=== PATIENT | male | born 1990 | race Caucasian/White ===

== ENCOUNTER 2016-12-24 23:52 | Emergency (ER) | payer OTHER ==
[~2016-12-24] VITALS: Ht 172.7 cm; Wt 72.6 kg
--- NOTE | ~2016-12-24 | EKG ---
[address] [place] [address] ELECTROCARDIOGRAM REPORT Name: JAY GARCIA Room #: DEP ANIYAH [place]#: [id number] Admission: 12/24/16 Attend Phys: Discharge: 12/25/16 Date of : [birth year] Report #: [id number] THIS REPORT FOR: //name// [facility] ED Test Date: 2016-12-25 Test Time: 00:00:48 Pat Name: JAY GARCIA Department: Room: Gender: M Spindle Maker: [id number] : 1990 Requested By: Kenrick Chiu Order Number: [id number] MD: Jersey Fisher Measurements Intervals Sargents Rate: 57 P: 25 GA: 158 QRS: 34 QRSD: 97 T: 49 QT: 402 QTc: 392 Interpretive Statements Sinus rhythm No previous ECG available for comparison Electronically Signed On 12-25-2016 15:46:42 CDT by Jersey Fisher [email or web address] <ELECTRONICALLY SIGNED> By: Jersey Fisher MD 12/25/16 1546 0000 0000 Jersey Fisher MD /EPI
[2016-12-25 00:43] LABS: ABSOLUTE NEUTROPHILS 7.4 thou/uL (1.4-8.2); BASOPHILS 0.3 % (0.0-2.0); EOSINOPHILS 1.7 % (0.0-3.0); HEMATOCRIT 42.6 % (42.0-52.0); HEMOGLOBIN 15.2 gm/dL (14.0-18.0); MCH 29.9 pg (26.0-34.0); MCHC 35.7 g/dL (28.0-37.0); MCV 83.7 fL (80.0-100.0); MONOCYTES 6.3 % (1.0-8.0); PLATELET COUNT 188 thou/uL (150-400); POLYS 71.7 % (36.0-66.0); RBC 5.09 mil/uL (4.50-6.00); RDW 12.6 % (10.5-14.5); WBC 10.3 thou/uL (4.0-11.0)
[2016-12-25 00:44] LABS: MANUAL DIFF NO
[2016-12-25 00:46] LABS: CALCIUM 9.3 mg/dL (8.5-10.1)
[2016-12-25 00:53] LABS: TOTAL BILIRUBIN 0.4 mg/dL (<0.1-1.0); TOTAL PROTEIN 8.2 g/dL (6.4-8.2)
[2016-12-25] MEDS ORDERED: OMEPRAZOLE20 M1 PO (01:23)
[2016-12-25] MEDS ORDERED: ZOFRAN ODT4 MG PO (01:23)
[2016-12-25] MEDS ORDERED: CARAFATE 1 GM TA1 G1 PO (01:23)
[2016-12-25 01:25] VITALS: BP 119/76
== END 2016-12-25 01:59 | disposition home or self-care (01) ==
LOC: ER 23:52
PROVIDERS: Emergency Medicine
DX: R10.13 Epigastric pain (principal); R11.2 Nausea with vomiting, unspecified